=== PATIENT | female | born 1970 | race Caucasian/White ===

== ENCOUNTER 2019-12-10 14:24 | Outpatient (CLI) | payer OTHER, SELFPAY ==
--- NOTE | 2019-12-10 14:29 | MM_ITS ---
WS: [id number] BILATERAL DIGITAL SCREENING MAMMOGRAPHY WITH CAD CLINICAL INFORMATION: SCREENING HISTORY: Screening mammogram. No current complaints. COMPARISON: April 21, 2018 TECHNIQUE: Bilateral CC and MLO views. FINDINGS: History of bilateral breast reduction. The breasts are composed of heterogeneous fibroglandular density tissue, which can limit the detectio n of small underlying mass lesions. No suspicious mass, asymmetry, calcifications, or architectural d istortion. No evidence of malignancy. Punctate calcification right breast. MM/[id number] IMPRESSION: BI-RADS: 2-Benign FOLLOW UP: 1 Year Follow-up Recommend return to annual screening mammography.
== END 2019-12-10 14:25 | disposition home or self-care (01) ==
PROVIDERS: PCP Nurse Practitioner Family; Visit Provider Nurse Practitioner Family
DX: Z12.31 Encounter for screening mammogram for malignant neoplasm of breast (principal)
CPT/HCPCS: 77067

== ENCOUNTER → 2021-01-22 09:15 | Outpatient (BNVA) | payer OTHER, SELFPAY | PROVIDERS: PCP Nurse Practitioner Family; Visit Provider Internal Medicine Cardiovascular Disease | DX: I25.10 Atherosclerotic heart disease of native coronary artery without angina pectoris (principal); I42.9 Cardiomyopathy, unspecified; Z79.899 Other long term (current) drug therapy | CPT/HCPCS: 80053; 80061; 85025 ==

== ENCOUNTER 2021-05-28 13:49 | Outpatient (CLI) | payer OTHER, SELFPAY ==
--- NOTE | 2021-05-28 13:53 | MM_ITS ---
WS: [id number] BILATERAL DIGITAL SCREENING MAMMOGRAPHY WITH CAD CLINICAL INFORMATION: SCREENING HISTORY: Screening mammogram. No current complaints. COMPARISON: December 12, 2019 TECHNIQUE: Bilateral CC and MLO views. FINDINGS: History of breast reduction. The breasts are composed of heterogeneous fibroglandular density tissue, which can limit the detectio n of small underlying mass lesions. Stable calcification right breast. No suspicious mass, asymmetry, calcifications, or architectural distortion. No evidence of malignancy. MM/[id number] IMPRESSION: BI-RADS: 2-Benign FOLLOW UP: 1 Year Follow-up Recommend return to annual screening mammography.
== END 2021-05-28 13:50 | disposition home or self-care (01) ==
LOC: RADSHAW 13:52
PROVIDERS: PCP Nurse Practitioner Family; Visit Provider Nurse Practitioner Family
DX: Z12.31 Encounter for screening mammogram for malignant neoplasm of breast (principal)
CPT/HCPCS: 77067

== ENCOUNTER → 2021-07-10 14:01 | Outpatient (BNVA) | payer OTHER, SELFPAY | PROVIDERS: PCP Nurse Practitioner Family; Visit Provider Family Medicine | DX: Z20.828 Contact with and (suspected) exposure to other viral communicable diseases (principal) | CPT/HCPCS: 87635 ==

== ENCOUNTER → 2021-09-01 17:00 | Outpatient (BNVA) | payer OTHER, SELFPAY | PROVIDERS: PCP Nurse Practitioner Family; Visit Provider Nurse Practitioner Family | DX: I21.9 Acute myocardial infarction, unspecified (principal); I25.10 Atherosclerotic heart disease of native coronary artery without angina pectoris; I50.9 Heart failure, unspecified; R00.0 Tachycardia, unspecified; I42.9 Cardiomyopathy, unspecified; R06.02 Shortness of breath | CPT/HCPCS: 80048; 83880; 84443 ==

== ENCOUNTER → 2021-09-15 17:10 | Outpatient (BNVA) | payer OTHER, SELFPAY | PROVIDERS: PCP Nurse Practitioner Family; Visit Provider Nurse Practitioner Family | DX: I25.10 Atherosclerotic heart disease of native coronary artery without angina pectoris (principal); I50.9 Heart failure, unspecified | CPT/HCPCS: 80048; 83880; 85025 ==

== ENCOUNTER 2021-09-21 07:26 | Outpatient (CLI) | payer OTHER, SELFPAY ==
--- NOTE | 2021-09-21 08:00 | USCV_ITS ---
Lanny Lawson Age: 51 Gender: F : 1970 Exam Date: 09/21/2021 07:54 Ordering Phys: Ngozi Gibbs Technologist: Mandeep Liang Exam Location: [facility] [place] Indication: Cardiomyopathy BP: 124 / 82 HR: 94 Rhythm: Sinus Technical Quality: Adequate MEASUREMENTS (Male / Female) Normal Values 2D ECHO LV Diastolic Diameter PLAX 5.5 cm 4.2 - 5.9 / 3.9 - 5.3 cm LV Systolic Diameter PLAX 5.3 cm IVS Diastolic Thickness 0.7 cm 0.6 - 1.0 / 0.6 - 0.9 cm IVS Systolic Thickness 0.7 cm LVPW Diastolic Thickness 1.6 cm 0.6 - 1.0 / 0.6 - 0.9 cm LVPW Systolic Thickness 1.6 cm LVOT Diameter 2.0 cm LV Ejection Fraction 2D Teich 8.5 % LV Ejection Fraction MOD 2C 2.4 % LV Ejection Fraction 2C AL 2.3 % LA Diameter 4.1 cm LA Width 3.3 cm LA Height 5.4 cm RA Width 3.6 cm RA Height 4.3 cm Aorta at Sinotubular Diameter 2.2 cm M-MODE Aortic Annulus Diameter 2.6 cm LA Ao Ratio MM 1.5 MV E Point Septal Separation 1.8 cm DOPPLER AV Peak Velocity 133.0 cm/s LVOT Peak Velocity 60.0 cm/s AV Area Cont Eq vti 1.3 cm squared AV Area Cont Eq pk 1.4 cm squared MV Area PHT 5.1 cm squared Mitral E to A Ratio 1.5 MV E' Velocity 117.0 cm/s TR Peak Velocity 322.1 cm/s TR Peak Gradient 41.5 mmHg TR Mean Velocity 224.9 cm/s TR Mean Gradient 22.7 mmHg TR Velocity Time Integral 110.6 cm Right Atrial Pressure 3.0 mmHg Pulmonary Artery Systolic Pressu 44.5 mmHg RV Acceleration Time 0.1 s RV Ejection Time 0.3 s RV AcT/ET 0.3 FINDINGS Left Ventricle Moderately increased left ventricular cavity size. Severely decreased left ventricular systolic function. Left ventricular ejection fraction is estimated at 15-20 %. Severe global hypokinesis. Abnormal septal motion. Right Ventricle Normal right ventricular size and systolic function. Right ventricular systolic pressure 51 mmHg. Right Atrium Normal right atrial size. Right atrial pressure estimated at 8 mmHg. Left Atrium Moderately increased left atrial size. Mitral Valve Mild mitral annular calcification. Thickened mitral valve. No mitral valve stenosis. Mild to moderate mitral valve regurgitation. Aortic Valve No aortic valve stenosis. No aortic valve regurgitation. Tricuspid Valve Structurally normal tricuspid valve. No tricuspid valve stenosis. Trace tricuspid valve regurgitation. Pulmonic Valve Structurally normal pulmonic valve. No pulmonary valve stenosis. Trace pulmonary valve regurgitation. Pericardium No pericardial effusion. Aorta Normal size aortic root and proximal ascending aorta. Dilated inferior vena cava with greater than 50% respiratory variation. CONCLUSIONS 1. Moderately increased left ventricular cavity size. Severely decreased left ventricular systolic function. Left ventricular ejection fraction is estimated at 15-20 %. Severe global hypokinesis. Abnormal septal motion. 2. Normal right ventricular size and systolic function. 3. Moderate pulmonary hypertension with pulmonary pressure estimated at 51 mmHg. 4. Right atrial pressure estimated at 8 mmHg. 5. Mild to moderate mitral valve regurgitation. 6. When compared to previous study dated 12/14/2018, left ventricular systolic function seems to have severely decreased. Zaina Zamora MD (Electronically Signed) Final Date: 23 September 2021 16:47 Amended: 29 September 2021 22:18 C
== END 2021-09-21 07:27 | disposition home or self-care (01) ==
PROVIDERS: PCP Nurse Practitioner Family; Visit Provider Nurse Practitioner Family
DX: I42.9 Cardiomyopathy, unspecified (principal); I50.9 Heart failure, unspecified; I27.20 Pulmonary hypertension, unspecified; I34.0 Nonrheumatic mitral (valve) insufficiency
CPT/HCPCS: 93306

== ENCOUNTER 2021-09-28 12:45 | Outpatient (CLI) | payer OTHER, SELFPAY ==
[2021-09-28 13:04] LABS: Basophils % 0.5 %; Eosinophils # 0.5 10^3/uL (0.0-0.8); Hematocrit 44.1 % (37.0-47.0); Hemoglobin 14.3 g/dL (11.5-15.3); Lymphocytes # 1.5 10^3/uL (0.8-4.8); Lymphocytes % 23.6 %; Mean Corpuscular HGB Conc 32.4 g/dL (30.0-36.0); Mean Corpuscular Volume 86.3 fl (81-99); Mean Platelet Volume 10.3 fL (7.4-10.4); Monocytes # 0.3 10^3/uL (0.2-0.9); Monocytes % 5.3 %; Neutrophils # 4.09 10^3/uL (1.8-7.7); Neutrophils % 63.4 %; Nucleated Red Blood Cells % 0 %; Platelet Count 268 10^3/cmm (130-400); Red Blood Count 5.11 10^6/uL (4.1-5.3); Red Cell Distribution Width 11.7 % (12.1-15.1); White Blood Count 6.4 10^3/uL (4.0-10.0)
== END 2021-09-28 12:46 | disposition home or self-care (01) ==
PROVIDERS: PCP Nurse Practitioner Family; Visit Provider Nurse Practitioner Family
DX: I50.9 Heart failure, unspecified (principal)
CPT/HCPCS: 85025

== ENCOUNTER 2021-09-30 06:09 | Outpatient (CLI) | payer OTHER, SELFPAY ==
[2021-09-30] VITALS (16 sets, daily range): BP systolic 82–103; BP diastolic 49–79; PULSE 71–94; RESP 10–23; TEMP 36.3; O2SAT 91–97; BMI 26.9
[2021-09-30 06:56] LABS: Anion Gap 13.2 (5-19); Blood Urea Nitrogen 18 mg/dL (6-20); Calcium 10.1 mg/dL (8.5-10.5); Carbon Dioxide 25 mmol/L (22-29); Chloride 102 mmol/L (98-107); Glucose 106 mg/dL (65-115); Osmolality Calculated 284 mOsm/kg (285-295); Potassium 4.2 mmol/L (3.5-5.1); Sodium 136 mmol/L (136-145)
--- NOTE | 2021-09-30 07:00 | XACV_ITS ---
Exam Room: 2 Ht: 168 cm Wt: 85 kg BSA: 2.02 m2 Gender: Female : 1970 Any Known Allergies: No known allergies Exam Priority: Routine Procedure(s): Procedure Description: Diagnostic procedure Procedure Description: Left Heart Catheterization Procedure Description: Left ventriculography Procedure Description: Coronary Angiography Diagnostic Cath Status: Elective Diagnostic Findings * Angiography shows a right coronary dominant system. * The left main, left anterior descending left circumflex and right coronary arteries are free of any significant disease. * Patent mid left anterior descending artery stent. Conclusions 1. Cardiac Catheterization study revealed normal coronaries. Patent mid left anterior descending artery stent. 2. Severe left ventricular dysfunction with ejection fraction estimated at 15%. Recommendations * Risk factor modification for secondary prevention. Ventriculography Ejection Fraction: 15.0 % Left Ventriculography Findings: * Left ventriculogram was performed in RAMÍREZ view. * Severe global dysfunction. * EF 15 %, estimated. * Mitral Valve Insufficiency: none. Pressures Phase:Rest AO : 60 / 45 ( 51 ) @ 8:36:00 AM 70 / 53 ( 61 ) @ 8:40:00 AM 86 / 58 ( 71 ) @ 8:45:00 AM 105 / 68 ( 85 ) @ 8:49:00 AM 108 / 75 ( 89 ) @ 8:49:00 AM LV : 99 / 14 / 36 @ 8:47:00 AM 109 / 23 / 40 @ 8:49:00 AM 101 / 16 / 35 @ 8:49:00 AM Hemodynamic Findings LVEDP is 36 mmHg. No aortic valve gradient. Valves Phase:DefaultPhase AV : 0.0 @ 7:55:33 AM AV Mean Gradient: 0.0 @ 7:55:33 AM Clinical Evaluation EBL: 5mL-10mL Procedural Details Procedure Consent Obtained. Admit Source: Out Patient. Pre-Procedure Time Out. Identified patient by full name and date of as verbalized by the patient/guarantor. Does the consent match the physician's order: Yes. Accurate & Complete Informed Consent: Yes. Inpatient/Outpatient History & Physical on Chart: Yes. If H&P is completed, is and addenduem needed: Yes; If yes, is the addendum complete: Yes. Visualize and Verify Site with Patient/Guarantor: N/A. Relevant Radiology Images available: N/A. Pre-op teaching completed and patient verbalized understanding. The risks, benefits, and alternatives of sedation and/or procedure were discussed by physician. The patient agrees to continue. Procedure started. [facility] Clinical Fraility Score: 2: Well. Digital Computer Systems Analyst Indications: Cardiomyopathy. Chest Pain Symptom Assessment: Atypical Angina. Correct patient, site and procedure confirmed by cath team. Current diagnosis: Chest Pain. PERRLA. Strong, equal hand street flusher driver bilaterally. Lungs clear x 5 lobes. IV Site on Arrival: 20 gauge in the right anticubital. IV Fluids: 0.9% NaCl at KVO. 0 mL infused prior to paint laboratory technician. Pre Procedural Pulses: bilateral radial was 3+. Pre Procedural Pulses: bilateral posterior tibial was 3+. Pre Procedural Pulses: bilateral dorsalis pedis was 3+. Oxygen started at 2liters/min via nasal canula. right groin was prepped with chloroprep then draped in the usual sterile fashion. right radial was prepped with chloroprep then draped in the usual sterile fashion. Baseline sample Acquired. HR: 84 BPM. Physician notified. Physician arrived. Physician scrubbed in. Immediate Pre-Procedure Time Out. Correct Patient: Yes; Correct Procedure: Yes; Correct Site: Yes; Correct Patient Position: Yes; Correct Supplies: Yes; Dried Flammable Prep: Yes Blood Products Available: N/A;. Lidocaine 1% infiltrated to the right radial. Arterial access obtained. A 5 estonian TIG catheter in over wire. Multiple views taken of left coronary artery. Catheter redirected to the RCA. Multiple views taken of right coronary artery. Standard wire out. Exchange wire inserted. A 5 estonian Angled Pig catheter in over wire. Catheter out. EDP Sample taken: LV 99/14,36; HR: 72 BPM; SpO2: 98%. EDP Sample taken: LV 109/23,40; HR: 72 BPM; SpO2: 98%. Pullback taken: LV 101/16,35; AO 105/68(85); Mean: 0mmHg, Peak to Peak: 0mmHg, SEP: 11sec/min; HR: 73 BPM; SpO2: 98%. Catheter out. LV gram performed in RAMÍREZ @ 10 mL/second for a total of 36 mL. Physician scrubbed out. Post Procedure: Pulses reassessed and unchanged. A TR Band was successful obtaining hemostatsis at the Right Radial artery insertion site. PERRLA. Strong, equal hand street flusher driver bilaterally. No VTE prophylaxis required. Medication's Wasted: Lidocaine 1% = 13 mL. Medication's Wasted: Nitro = 49.8 mg. Medication's Wasted: Heparin = 1000 u. Total IV fluids: 200 mL. Post-op diagnosis: Normal Coronaries, Non Ischemic Cardiomyopathy. Complications: none. Estimated blood loss: 5mL-10mL. Responsiveness - Normal response to verbal stimuli; alert and oriented, PERRLA. Airway - Unaffected, no intervention required; spontaneous ventilation. Circulation: W/N/L, pulses unchanged. Nausea/Vomiting: No. Procedure completed. Patient transferred by wheelchair to CPRU. Vital chart was stopped. Access Site Site: Right Radial artery Sheath Size: 6 Fr Hemostasis Method: TR Band Hemostasis Success: Successful Procedure Medications Start: 7:24 AM Stop: 7:24 AM Medication: Fentanyl Amount: 50 mcg Route: I.V. Start: 7:24 AM Stop: 7:24 AM Medication: 0.9% Saline Amount: 75 ml/hr Route: I.V. drip Start: 7:29 AM Stop: 7:29 AM Medication: Versed Amount: 1 mg Route: I.V. Start: 7:29 AM Stop: 7:29 AM Medication: Fentanyl Amount: 50 mcg Route: I.V. Start: 7:33 AM Stop: 7:33 AM Medication: Nitrogylcerin Amount: 200 mcg Route: I.A. Start: 7:36 AM Stop: 7:36 AM Medication: 0.9% Saline Amount: 250 ml Route: I.V. bolus Start: 7:33 AM Stop: 7:33 AM Medication: Heparin Amount: 5000 units Route: I.V. I, the attending physician, have reviewed and verified all procedure medications. Yes, all medications given per verbal order History/Risk Factors Hypertension: No Dyslipidemia: No Peripheral Arterial Disease (PAD): No Myocardial Infarction (NV): Yes Obesity: No Renal Disease: No Tobacco Use: Never Prior Interventions PCI: Yes CABG: No Valve Surgery: No Date of PCI: 12/20/2017 Report Signatures Finalized by Zaina Zamora MD on 10/01/2021 12:38 PM
[2021-09-30 07:01] LABS: SARS Covid-2 Antigen Negative (Negative)
--- NOTE | 2021-09-30 07:17 | W.PM.OPSFHP ---
Same Day Surgery H&P Indication for Procedure/HPI DATE OF PROCEDURE: September 30, 2021 CHIEF COMPLAINT/INDICATIONFOR SURGICAL PROCEDURE: exertional dyspnea; Cardiomyopathy with drop in LV function, h/o CAD PREOP DIAGNOSIS: Cardiomyopathy with drop in LV function, h/o CAD PLANNED PROCEDURE: Operation Date: 09/30/21 07:00 Proposed Procedures p Cardiac Catheterization(Left) - Zaina Zamora MD 51 with h/o non ischemic cardiomyopathy in 2017, h/o acute anterior wall PR in 2018.? She was exercising regularly and in fact had the myocardial infarction while she was at a [employer].?? She did have some ventricular arrhythmias and congestive heart failure during the time the myocardial infarction occurred.?She developed exertional dyspnea and echo revealed marked decrease in LV function. LVEF =15%. She is here for elective LHC. Medications/Allergies* Home Medications Medication Instructions Recorded Confirmed Type albuterol sulfate 2.5 mg INHALATION Q4H PRN 12/26/19 09/29/21 History albuterol sulfate 90 mcg/actuation 2 puff INHALATION Q6H PRN 12/26/19 09/29/21 History aerosol inhaler (ProAir HFA) aspirin 81 mg tablet,delayed 81 mg PO DAILY 12/26/19 09/29/21 History release (Aspir-) levothyroxine 200 mcg tablet 200 mcg PO DAILY 12/26/19 09/29/21 History (Synthroid) magnesium oxide 500 mg tablet 500 mg PO DAILY 01/22/21 09/29/21 History cetirizine 10 mg tablet (Zyrtec) 10 mg PO DAILY PRN 09/15/21 09/29/21 History furosemide 40 mg tablet 40 mg PO BID PRN 09/29/21 09/29/21 History Allergies/Adverse Reactions Allergy/AdvReac Type Severity Reaction Status Date / Time No Known Allergies Allergy Verified 09/29/21 08:57 Pertinent History/Comorbid Conditions* Medical History (Updated 09/24/21 @ 09:55 by DARYN Moreno) ASHD (arteriosclerotic heart disease) Cardiomyopathy CHF (congestive heart failure) Myocardial infarction Presence of stent in LAD coronary artery Surgical History (Updated 01/25/20 @ 09:25 by Mike Galvin MD) S/P PTCA (percutaneous transluminal coronary angioplasty) Social History Smoking and tobacco status: never smoked Household members: spouse Marital status: Pertinent Exam Findings alert, oriented x 3, clear to auscultation bilaterally, regular rate & rhythm and procedure specific exam findings (ASA 3, Airway 2) Recommendations Surgery/Procedure today Coding Level of Care Code Acute Counselor Aide for Florecita Mora
[2021-09-30] MEDS: diphenhydrAMINE 50 mg Capsule PO (07:20)
--- NOTE | 2021-09-30 08:05 | PC.NURSE ---
Received patient from carpenter/labor via wheelchair at this time. Pt alert and oriented X 4. Breathing even and non-labored. No reports of pain. Pt placed on bedside cardiac technologist. TR band to right wrist. Site asymptomatic, no signs of bleeding or hematoma noted. Pt educated on activity restrictions to right arm and reportable signs and symptoms. Family at bedside, call light in reach. Will continue to monitor.
--- NOTE | 2021-09-30 09:07 | PC.NURSE ---
2ml air removed from right radial TR band. Site asymptomatic. Pt does report tinging sensation to finger. Hand and fingers pink, warm, and dry. right radial pulse palpable. Will continue to monitor.
--- NOTE | 2021-09-30 09:30 | PC.NURSE ---
2ml air removed from right radial TR band. Site asymptomatic. Hand and fingers pink, warm, and dry. right radial pulse palpable. Will continue to monitor.
--- NOTE | 2021-09-30 09:58 | PC.NURSE ---
1ml air removed from right radial TR band. Site asymptomatic.Hand and fingers pink, warm, and dry. right radial pulse palpable. Will continue to monitor.
--- NOTE | 2021-09-30 10:29 | PC.NURSE ---
TR band to right radial artery deflated. TR band left in place to monitor for bleeding. No signs of bleeding or hematoma. radial pulse palpable.
[2021-09-30 11:01] LABS: Chol HDL Ratio 2.91 mg/dL (0.0-4.40); Cholesterol 134 mg/dL (0-200); Free T4 Free Thyroxine 2.06 ng/dL (0.82-1.77); HDL Cholesterol 46 mg/dL (60-100); LDL Cholesterol Calculated 68 mg/dL (50-129); LDL HDL Ratio 1.48 RATIO (0.00-3.22); Magnesium 2.1 mg/dL (1.7-2.3); NT Pro B Type Natriuretic Pept 1886 pg/mL (0-125); Triglycerides 102 mg/dL (0-150)
== END 2021-09-30 11:39 | disposition home or self-care (01) ==
PROVIDERS: PCP Nurse Practitioner Family; Visit Provider Internal Medicine Cardiovascular Disease
DX: I42.9 Cardiomyopathy, unspecified (principal); I50.9 Heart failure, unspecified; I25.10 Atherosclerotic heart disease of native coronary artery without angina pectoris; R94.30 Abnormal result of cardiovascular function study, unspecified; I25.2 Old myocardial infarction; Z95.5 Presence of coronary angioplasty implant and graft
CPT/HCPCS: 80048; 80061; 83735; 83880; 84439; 84443; 84481; 87426; 93458; 96360; C1769; C1887; C1894; J1644; J2250; J3010; J3490; J7030; Q0163; Q9967

== ENCOUNTER 2021-10-12 13:40 | Outpatient (CLI) | payer OTHER, SELFPAY ==
[2021-10-12 15:30] LABS: Blood Urea Nitrogen 20 mg/dL (6-20); Calcium 9.3 mg/dL (8.5-10.5); Carbon Dioxide 26 mmol/L (22-29); Chloride 97 mmol/L (98-107); Glucose 85 mg/dL (65-115); Magnesium 2.2 mg/dL (1.7-2.3); NT Pro B Type Natriuretic Pept 2915 pg/mL (0-125); Osmolality Calculated 284 mOsm/kg (285-295); Sodium 136 mmol/L (136-145)
== END 2021-10-12 13:41 | disposition home or self-care (01) ==
PROVIDERS: PCP Nurse Practitioner Family; Visit Provider Internal Medicine Cardiovascular Disease
DX: I25.10 Atherosclerotic heart disease of native coronary artery without angina pectoris (principal); I42.9 Cardiomyopathy, unspecified; I50.9 Heart failure, unspecified
CPT/HCPCS: 80048; 83735; 83880

== ENCOUNTER 2021-10-23 10:59 | Outpatient (CLI) | payer OTHER, SELFPAY ==
[2021-10-23 13:10] LABS: Anion Gap 14.2 (5-19); Blood Urea Nitrogen 20 mg/dL (6-20); Calcium 9.7 mg/dL (8.5-10.5); Carbon Dioxide 26 mmol/L (22-29); Chloride 98 mmol/L (98-107); Glomerular Filtration Rate 65.5 mL/min (90-130); Glucose 100 mg/dL (65-115); Magnesium 2.2 mg/dL (1.7-2.3); NT Pro B Type Natriuretic Pept 1421 pg/mL (0-125); Osmolality Calculated 281 mOsm/kg (285-295); Potassium 4.2 mmol/L (3.5-5.1); Sodium 134 mmol/L (136-145)
== END 2021-10-23 11:00 | disposition home or self-care (01) ==
PROVIDERS: PCP Nurse Practitioner Family; Visit Provider Internal Medicine Cardiovascular Disease
DX: I42.9 Cardiomyopathy, unspecified (principal); I50.9 Heart failure, unspecified; R94.30 Abnormal result of cardiovascular function study, unspecified
CPT/HCPCS: 36415; 80048; 83735; 83880

== ENCOUNTER 2021-12-23 11:48 | Outpatient (CLI) | payer OTHER, SELFPAY ==
--- NOTE | 2021-12-23 12:06 | USCV_ITS ---
Lanny Lawson Age: 51 Gender: F : 1970 Exam Date: 12/23/2021 12:16 Ordering Phys: Zaina Zamora MD ([email or web address]) Technologist: Exam Location: [facility] [place] Indication: Cardiomyopathy BP: 110 / 80 HR: 76 Rhythm: Sinus Technical Quality: Adequate MEASUREMENTS (Male / Female) Normal Values 2D ECHO LV Diastolic Diameter PLAX 5.0 cm 4.2 - 5.9 / 3.9 - 5.3 cm LV Systolic Diameter PLAX 4.0 cm IVS Diastolic Thickness 1.0 cm 0.6 - 1.0 / 0.6 - 0.9 cm IVS Systolic Thickness 1.4 cm LVPW Diastolic Thickness 1.3 cm 0.6 - 1.0 / 0.6 - 0.9 cm LVPW Systolic Thickness 1.0 cm LVOT Diameter 2.0 cm LV Ejection Fraction 2D Teich 17.3 % LV Ejection Fraction MOD 2C 22.0 % LV Ejection Fraction 2C AL 22.3 % LA Diameter 4.2 cm IVC Diameter 1.2 cm M-MODE Aortic Annulus Diameter 3.0 cm LA Ao Ratio MM 1.5 FINDINGS Left Ventricle Dilated left ventricle with severely decreased left ventricle systolic function. Left ventricular ejection fraction is estimated at 15-20 %. Severe global hypokinesis. Right Ventricle Normal right ventricular size and systolic function. Right Atrium Normal right atrial size. Right atrial pressure estimated at 3 mmHg. Left Atrium Normal left atrial size. Mitral Valve Mildly thickened mitral valve. Mild mitral valve regurgitation. Aortic Valve Probably trileaflet aortic valve. Tricuspid Valve Structurally normal tricuspid valve. Pulmonic Valve Pulmonic valve not well visualized. Pericardium No pericardial effusion. Aorta Normal-sized aortic root. IVC Normal IVC dimension with >50% respiratory change of the inferior vena cava. CONCLUSIONS 1. This is a limited echocardiogram. 2. Dilated left ventricle with severely decreased left ventricle systolic function. Left ventricular ejection fraction is estimated at 15-20 %. Severe global hypokinesis. 3. No significant change when compared to previous study dated 09/21/2021. Zaina Zamora MD (Electronically Signed) Final Date: 24 December 2021 12:30 S
== END 2021-12-23 11:49 | disposition home or self-care (01) ==
PROVIDERS: PCP Nurse Practitioner Family; Visit Provider Internal Medicine Cardiovascular Disease
DX: R94.30 Abnormal result of cardiovascular function study, unspecified (principal); I42.9 Cardiomyopathy, unspecified; I50.9 Heart failure, unspecified; R06.02 Shortness of breath
CPT/HCPCS: 93308

== ENCOUNTER → 2022-02-16 16:47 | Outpatient (BNVA) | payer SELFPAY | PROVIDERS: PCP Nurse Practitioner Family; Visit Provider Internal Medicine Cardiovascular Disease | DX: B35.1 Tinea unguium (principal) | CPT/HCPCS: 80053; 87635 ==

== ENCOUNTER 2022-09-03 14:19 | Outpatient (CLI) | payer BC, SELFPAY ==
--- NOTE | 2022-09-03 14:36 | MM_ITS ---
WS: [id number] BILATERAL 3D TOMOSYNTHESIS DIGITAL SCREENING MAMMOGRAPHY WITH CAD CLINICAL INFORMATION: SCREENING HISTORY: Screening mammogram. No current complaints. COMPARISON: 2020 TECHNIQUE: Bilateral CC and MLO views. FINDINGS: The breasts are composed of heterogeneous fibroglandular density tissue, which can limit the detectio n of small underlying mass lesions. No suspicious mass, asymmetry, calcifications, or architectural d istortion. No evidence of malignancy. Stable punctate calcification RIGHT breast. MM/[id number] IMPRESSION: BI-RADS: 2-Benign FOLLOW UP: 1 Year Follow-up Recommend return to annual screening mammography.
== END 2022-09-03 14:20 | disposition home or self-care (01) ==
PROVIDERS: PCP Nurse Practitioner Family; Visit Provider Nurse Practitioner Family
DX: Z12.31 Encounter for screening mammogram for malignant neoplasm of breast (principal)
CPT/HCPCS: 77063; 77067

== ENCOUNTER → 2022-11-09 14:46 | Outpatient (BNVA) | payer BC, SELFPAY | PROVIDERS: PCP Nurse Practitioner Family; Visit Provider Nurse Practitioner Family | DX: I48.91 Unspecified atrial fibrillation (principal); I50.9 Heart failure, unspecified; I42.9 Cardiomyopathy, unspecified; Z95.0 Presence of cardiac pacemaker; I25.10 Atherosclerotic heart disease of native coronary artery without angina pectoris | CPT/HCPCS: 36415; 80048; 83880 ==

== ENCOUNTER → 2022-11-23 09:47 | Outpatient (BNVA) | payer BC, SELFPAY | PROVIDERS: PCP Nurse Practitioner Family; Visit Provider Nurse Practitioner Family | DX: I42.9 Cardiomyopathy, unspecified (principal); I50.9 Heart failure, unspecified | CPT/HCPCS: 36415; 80048; 83880 ==

== ENCOUNTER → 2022-12-20 07:39 | Outpatient (BNVA) | payer BC, SELFPAY | PROVIDERS: PCP Nurse Practitioner Family; Visit Provider Podiatrist Foot & Ankle Surgery | DX: B35.1 Tinea unguium (principal); S92.332A Displaced fracture of third metatarsal bone, left foot, initial encounter for closed fracture; W01.0XXA Fall on same level from slipping, tripping and stumbling without subsequent striking against object, initial encounter | CPT/HCPCS: 36415; 73630; 80053 ==

== ENCOUNTER 2023-01-31 15:59 | Outpatient (CLI) | payer BC, SELFPAY ==
--- NOTE | 2023-01-31 16:28 | XR_ITS ---
WS: [id number] XR hip LT 2-3V wo/w pel* [id number] REASON FOR EXAM: Left hip joint pain FINDINGS: No fracture or focal bone lesion. The joint space is relatively well-preserved. There is mild subchondral sclerosis and small osteophyt osis of the acetabulum. No significant osteophytosis of the femoral head. No soft tissue abnormality. XR/XR hip LT 2-3V wo/w pel* [id number] IMPRESSION: Mild changes of osteoarthritis in the left hip. Left hip joint is similar to th e left hip on the CT scan of the abdomen and pelvis 08/27/2014.
--- NOTE | 2023-01-31 16:32 | XR_ITS ---
WS: [id number] XR knee LT 3V* [id number] REASON FOR EXAM: Left knee pain FINDINGS: No fracture or focal bone lesion. Medial and lateral knee joint spaces are intact and relatively well-preserved. Minimal subchondral sclerosis in the medial and lateral knee joint space. Patellofemoral joint space is intact with minimal subchondral sclerosis and osteophytosis of the devi lla. XR/XR knee LT 3V* [id number] IMPRESSION: Mild changes of osteoarthritis in the left knee.
== END 2023-01-31 16:00 | disposition home or self-care (01) ==
PROVIDERS: PCP Nurse Practitioner Family; Referring Provider Nurse Practitioner Family; Visit Provider Podiatrist Foot & Ankle Surgery
DX: M17.12 Unilateral primary osteoarthritis, left knee (principal); M16.12 Unilateral primary osteoarthritis, left hip; L60.8 Other nail disorders
CPT/HCPCS: 36415; 73502; 73562; 80053

== ENCOUNTER → 2023-03-07 15:33 | Outpatient (BNVA) | payer BC, SELFPAY | PROVIDERS: PCP Nurse Practitioner Family; Referring Provider Nurse Practitioner Family; Visit Provider Specialist | DX: M25.562 Pain in left knee (principal); S83.282A Other tear of lateral meniscus, current injury, left knee, initial encounter; X58.XXXA Exposure to other specified factors, initial encounter | CPT/HCPCS: 73560; 73565 ==

== ENCOUNTER → 2023-04-04 15:47 | Outpatient (BNVA) | payer BC, SELFPAY | PROVIDERS: PCP Nurse Practitioner Family; Visit Provider Specialist | DX: M25.552 Pain in left hip (principal); M70.62 Trochanteric bursitis, left hip | CPT/HCPCS: 73502 ==

== ENCOUNTER 2023-05-16 13:26 | Outpatient (CLI) | payer BC, SELFPAY ==
--- NOTE | 2023-05-16 13:34 | IR_ITS ---
WS: [id number] LEFT KNEE ARTHROGRAM Fluoroscopic guided left knee arthrogram. CLINICAL INFORMATION: M25.562 - Pain in left knee COMPARISON: None. TECHNIQUE: The procedure including risks, benefits, and complications were discussed with the patient , who agreed to proceed. Timeout was performed. Using sterile technique, the patient was prepped and draped in the usual sterile fashion. After 1% lidocaine injection using fluoroscopic guidance, a 22-g auge spinal needle was advanced into the left patellofemoral compartment. Access could not be achieve d with a 22-gauge needle. Subsequently a 25-gauge needle was utilized and access was obtained. Subsequently 35 cc of a mixture containing 20 cc normal saline and 20 cc Omnipaque 300 was administer ed. No immediate complications. FLUOROSCOPY TIME: 1min [id number] # of spot films: 4 IMPRESSION: Uncomplicated left knee fluoroscopic guided arthrogram. CT to follow.
--- NOTE | 2023-05-16 13:34 | CT_ITS ---
WS: [id number] CT OF THE LEFT KNEE WITH INTRA-ARTICULAR CONTRAST TECHNIQUE: CT of the LEFT knee with coronal and sagittal reformatted images after intra-articular con trast. CLINICAL INFORMATION: knee pain COMPARISON: Radiograph 03/07/2023 DLP: 308.[address] scans at [facility] use at least one of these dose optimization techniques: automated e xposure control; mA and/or kV adjustment per patient size (includes targeted exams where dose is matc hed to clinical indication); or iterative reconstruction. FINDINGS: Mild to moderate degenerative narrowing LEFT knee worse in the lateral joint compartment. Hypertrophi c change along the joint line. Slight hypertrophic patella. Moderate chondromalacia patella worse inv olving the lateral patellar facet with subchondral cystic change. No acute fractures. ACL and PCL margo ear grossly intact. Medial and lateral collateral ligaments appear intact. Popliteus appears intact. Chronic thinning of the medial and lateral meniscus. Peripheral extrusion of the lateral meniscus. Medial meniscus appears intact. Chronic appearing tear with blunting of the anterior horn lateral meniscus extending to the meniscal root. Normal popliteal fossa. Small lobulated popliteal cyst measuring 2.1 x 1.0 cm. IMPRESSION: 1. Mild to moderate degenerative arthritis worse in the lateral joint compartment with mild hypertro phic changes along the joint line. 2. Moderate degenerative arthritis patellofemoral articulation worse involving the lateral patellar facet with subchondral cystic changes and slight sclerosis. 3. ACL and PCL appear grossly intact. 4. Suspected tear involving the anterior horn lateral meniscus with blunting of the meniscal root. P eripheral extrusion of the lateral meniscus. 5. Medial and lateral collateral ligaments appear intact. 6. Small popliteal cyst.
== END 2023-05-16 13:27 | disposition home or self-care (01) ==
LOC: RAD 13:30
PROVIDERS: PCP Nurse Practitioner Family; Visit Provider Specialist
DX: M17.12 Unilateral primary osteoarthritis, left knee (principal); M71.22 Synovial cyst of popliteal space [Baker], left knee; Z95.0 Presence of cardiac pacemaker
CPT/HCPCS: 27369; 73701; 77002; Q9966

== ENCOUNTER 2023-12-20 11:50 | Outpatient (CLI) | payer BC, SELFPAY ==
--- NOTE | 2023-12-20 11:56 | MM_ITS ---
WS: [id number] VIEWS: MLO and CC views both breasts. 3D digital tomosynthesis is also included in this exam. Comparison made with prior exam of 01/14/2010, 01/27/2011, 04/14/2012, 06/24/2015, 04/21/2018, 12/10/2019 , 05/28/2021. 09/03/2022.. Findings: There was no sign of mass, architectural distortion or suspicious calcification in either breast. Sta ble appearing nodules in both breasts. The breasts are heterogeneously dense which may obscure small masses MM/[place] [id number] Impression: BI-RADS: 2-Benign finding. FOLLOW-UP: 1 Year Follow-up This mammogram was also analyzed by the Computer Aided Detection System R2 Imag e Medical Historian.
== END 2023-12-20 11:51 | disposition home or self-care (01) ==
LOC: RAD 11:50
PROVIDERS: PCP Nurse Practitioner Family; Visit Provider Nurse Practitioner Family
DX: Z12.31 Encounter for screening mammogram for malignant neoplasm of breast (principal); R92.333 Mammographic heterogeneous density, bilateral breasts; N63.42 Unspecified lump in left breast, subareolar; N63.41 Unspecified lump in right breast, subareolar
CPT/HCPCS: 77063; 77067

== ENCOUNTER 2024-03-14 07:36 | Outpatient (CLI) | payer BC, SELFPAY ==
--- NOTE | 2024-03-14 07:45 | USCV_ITS ---
Lanny Lawson Age: 54 Gender: F : 1970 Exam Date: 03/14/2024 07:51 Ordering Phys: Dre Gaona M.D ([email or web address]) Technologist: Exam Location: [facility] [place] Indication: cardiomyopathy BP: 125 / 70 HR: 129 Rhythm: Sinus Technical Quality: Adequate MEASUREMENTS (Male / Female) Normal Values 2D ECHO LV Diastolic Diameter PLAX 5.9 cm 4.2 - 5.9 / 3.9 - 5.3 cm IVS Diastolic Thickness 1.2 cm 0.6 - 1.0 / 0.6 - 0.9 cm IVS Systolic Thickness 1.6 cm LVPW Diastolic Thickness 1.1 cm 0.6 - 1.0 / 0.6 - 0.9 cm LVPW Systolic Thickness 1.3 cm LVOT Diameter 2.0 cm LV Ejection Fraction 2D Teich 66.0 % LV Ejection Fraction MOD 4C 20.3 % LV Ejection Fraction MOD 2C 46.3 % LV Ejection Fraction 2C AL 46.2 % LA Diameter 3.7 cm RA Systolic Volume 4C AL 67.4 ml RA Systolic Volume 4C MOD 66.7 ml Aorta at Sinotubular Diameter 2.3 cm M-MODE LA Ao Ratio MM 1.5 MV E Point Septal Separation 1.8 cm AV Cusp Separation MM 2.4 cm DOPPLER AV Peak Velocity 155.3 cm/s LVOT Peak Velocity 85.0 cm/s AV Area Cont Eq vti 1.8 cm squared AV Area Cont Eq pk 1.8 cm squared MV Peak Velocity 128.0 cm/s MV Area PHT 5.6 cm squared Mitral E to A Ratio 0.7 TV Peak Velocity 135.3 cm/s TR Peak Velocity 171.0 cm/s TR Peak Gradient 11.7 mmHg Right Atrial Pressure 3.0 mmHg Pulmonary Artery Systolic Pressu 14.7 mmHg PV Peak Velocity 85.0 cm/s FINDINGS Left Ventricle Severely increased left ventricular cavity size. Severely decreased left ventricular systolic function. Left ventricular ejection fraction is estimated at 25 %. Mid to distal septal apical and inferolateral wall akinesis, pattern of wall motion abnormality suggestive of ischemic cardiomyopathy.Grade I/IV diastolic dysfunction (abnormal relaxation filling pattern), normal to mildly elevated filling pressures. Right Ventricle Normal right ventricular size. Catheter/pacemaker wire visualized in the right ventricle. Right Atrium Normal right atrial size. Left Atrium Moderately increased left atrial size. Mitral Valve Moderately thickened mitral valve. Severe mitral annular calcification. No mitral valve stenosis. Mild-moderate mitral valve regurgitation. Aortic Valve Severe aortic valve calcification. Mild aortic valve stenosis, mean gradient 4.2 mmHg, MARY 1.8 cm squared. Trace aortic valve regurgitation. Tricuspid Valve Structurally normal tricuspid valve without significant stenosis or regurgitation. Pulmonary artery systolic pressure is normal. Pulmonic Valve Structurally normal pulmonic valve without significant stenosis. There is no pulmonic regurgitation. Pericardium Normal pericardium without effusion. Aorta Normal ascending aorta dimension. IVC The inferior vena cava appears normal. CONCLUSIONS Severely increased left ventricular cavity size. Severely decreased left ventricular systolic function. Left ventricular ejection fraction is estimated at 25 %. Mid to distal septal apical and inferolateral wall akinesis, pattern of wall motion abnormality suggestive of ischemic cardiomyopathy.Grade I/IV diastolic dysfunction (abnormal relaxation filling pattern), normal to mildly elevated filling pressures. Normal right ventricular size. Catheter/pacemaker wire visualized in the right ventricle. Severe aortic valve calcification. Mild aortic valve stenosis, mean gradient 4.2 mmHg, MARY 1.8 cm squared. Trace aortic valve regurgitation. Moderately thickened mitral valve. Severe mitral annular calcification. No mitral valve stenosis. Mild-moderate mitral valve regurgitation. There is no pericardial effusion. Right atrial pressure is around 5 mm of mercury. Nancy Atwood MD (Electronically Signed) Final Date: 16 March 2024 18:31 S
== END 2024-03-14 07:37 | disposition home or self-care (01) ==
PROVIDERS: PCP Family Medicine; Visit Provider Internal Medicine
DX: I34.0 Nonrheumatic mitral (valve) insufficiency (principal); I51.7 Cardiomegaly; I34.81 Nonrheumatic mitral (valve) annulus calcification; I50.20 Unspecified systolic (congestive) heart failure; I50.30 Unspecified diastolic (congestive) heart failure; I70.0 Atherosclerosis of aorta
CPT/HCPCS: 93306